=== PATIENT | female | born 1965 | race Two or more races ===

== ENCOUNTER → 2019-12-07 | Day surgery (SDC) | payer MEDICAID ==
[2019-12-03 09:10] LABS: Basophils # (auto) 0.1 uL; Basophils % (auto) 0.8 % (0.0-2.0); Eosinophils # (auto) 0.1 uL; Eosinophils % (auto) 1.3 % (0.0-7.0); Hematocrit 44.3 % (36.0-46.0); Hemoglobin 14.7 g/dL (12.2-16.2); Lymphocytes # (auto) 2.3 uL; Mean Corpuscular Hemoglobin 29.5 pg (28.0-32.0); Mean Corpuscular Volume 89.2 fL (80.0-100.0); Monocytes # (auto) 0.5 uL; Monocytes % (auto) 6.6 % (0.0-12.0); Neutrophils # (auto) 4.6 uL; Neutrophils % (auto) 61.3 % (37.0-80.0); Platelet Count (auto) 281 10^3/uL (140-450); Red Blood Cells 4.97 10^6/uL (4.0-5.20); Red Cell Distribution Width 14.3 % (11.8-14.3); White Blood Cell 7.5 10^3/uL (4.4-10.8)
[2019-12-03 09:29] LABS: INR 0.96 (0.9-1.15); Partial Thromboplastin Time 25.1 sec (23.64-32.05)
[~2019-12-07] VITALS: Ht 160 cm; Wt 90.7 kg
[~2019-12-07] MED LIST: LIDOCAINE VISCOUS 2% 15ML UD ONE; LISI-646 PO; OMEP20TA PO; SODIUM CHLORIDE LOCK 10 ML ONE; diphenhdrAMINE HCL 50 MG/1 ML VL ONE
[2019-12-07] MEDS: MIDAZOLAM HCL 5 MG/ML-1ML VIAL ONE ×2 (11:08→11:12)
[2019-12-07] MEDS: fentaNYL CITRATE 100 MCG/2 ML VL ONE ×2 (11:08→11:12)
[2019-12-07 12:03] VITALS: BP 126/80
== END | disposition home or self-care (01) ==
LOC: GI 09:41
PROVIDERS: ATTEND Internal Medicine Gastroenterology
DX: K21.9 Gastro-esophageal reflux disease without esophagitis (principal); K29.50 Unspecified chronic gastritis without bleeding; I10 Essential (primary) hypertension; Z79.899 Other long term (current) drug therapy; Z98.890 Other specified postprocedural states; Z90.49 Acquired absence of other specified parts of digestive tract
CPT/HCPCS: 36415; 43239; 85025; 85610; 85730; 88305; 88342; J2250; J3010; J7030